=== PATIENT | female | born 1970 ===

== ENCOUNTER → 2022-07-01 | Outpatient (CLI) | payer BC | LOC: LAB 11:24 → LAB SHORT 11:24 | DX: L02.811 Cutaneous abscess of head [any part, except face] (principal); L40.0 Psoriasis vulgaris; L08.9 Local infection of the skin and subcutaneous tissue, unspecified | CPT/HCPCS: 87070; 87077; 87186; 87205 ==

== ENCOUNTER → 2022-08-09 | Outpatient (CLI) | payer BC | LOC: LAB SHORT 13:20 → LAB 13:20 | DX: A49.02 Methicillin resistant Staphylococcus aureus infection, unspecified site (principal) | CPT/HCPCS: 87070; 87205 ==